=== PATIENT | male | born 1980 | race Caucasian/White ===

== ENCOUNTER 2017-03-18 18:01 | Emergency (ER) | payer SELFPAY ==
--- NOTE | 2017-03-18 19:19 | DIAGNOSTIC IMAGING REPORT ---
PROCEDURE: XR FOOT 3 VIEWS - RIGHT INDICATION: TRAUMA/INJURY TECHNIQUE: Three views. COMPARISON: None. FINDINGS: Traumatic amputation of the proximal third and fourth phalanges midshafts. No additional osseous abnormalities. Normal joint spaces and soft tissues. IMPRESSION: 1. Traumatic amputation of the right third and fourth proximal phalanges.
--- NOTE | 2017-03-18 21:04 | ED CLINICAL REPORT ---
Clinical Report - [facility] [address] [place] [address] 03/18/2017 18:02 Patient: JAVON BLEDSOE Time Seen: 1809. Arrived- By private vehicle. Historian- patient. HISTORY OF PRESENT ILLNESS Chief Complaint: Injury to the right 2nd toe and right 3rd toe. The injury happened today just prior to 1800. Occurred at home. Patient is experiencing moderate pain. Patient denies injury to the head or neck. No other injury. REVIEW OF SYSTEMS The patient sustained a laceration. He complains of pain on weight bearing. No suspected foreign body. All systems otherwise negative, except as recorded above. PAST HISTORY See nurses notes. Tetanus immunization status is unknown. Problems: no known problems. Additional Surgeries: no known surgeries. Medications: None. Allergies: No Known Drug Allergy. SOCIAL HISTORY Former smoker. Occasional alcohol use. History of occasional drug use: marijuana. No recent travel. Is a local resident. ADDITIONAL NOTES The nursing notes have been reviewed. PHYSICAL EXAM Vital Signs: 03/18/2017 18:09 BP: 113/42. HR: 74. RR: 13. O2 saturation: 100%. Pain level now: 10/10. Blood pressure normal. Oxygen saturation normal. Appearance: Alert. Oriented X3. Patient in moderate distress. (non-toxic). Head: Head atraumatic. Eyes: Pupils equal, round and reactive to light. Eyes normal inspection. ENT: Ears normal. Nose normal. Pharynx normal. Neck: Normal inspection. Neck supple. C-spine non-tender. CVS: Normal heart rate and rhythm. Heart sounds normal. Pulses normal. Respiratory: No respiratory distress. Breath sounds normal. Chest nontender. Abdomen: No visible injury. Soft and nontender. Bowel sounds normal. Back: Normal inspection. No tenderness. ROM normal. No vertebral point tenderness. Skin: Skin intact. Skin warm and dry. Extremities: (complete amputation of the third and fourth digit on the right foot. Possible tendon and bone exposure. No pulsatile bleeding. Bleeding is controlled with pressure. Areas appropriate only tender. No signs of foreign body or gross contamination. No other signs of injury noted.). Gait: Gait not tested due to pain. He was unable to bear weight. Neuro: Oriented X 3. No motor deficit. No sensory deficit. LABS, X-RAYS, AND EKG Rt Foot X-ray: (PROCEDURE: XR FOOT 3 VIEWS - RIGHT INDICATION: TRAUMA/INJURY TECHNIQUE: Three views. COMPARISON: None. FINDINGS: Traumatic amputation of the proximal third and fourth phalanges midshafts. No additional osseous abnormalities. Normal joint spaces and soft tissues. IMPRESSION: 1. Traumatic amputation of the right third and fourth proximal phalanges.). The X-rays were independently viewed by me and interpreted by the radiologist. The X-rays were discussed with the radiologist (via pacs and phone). Laboratory Tests: CBC w Diff: (LATESHA: 03/18/2017 18:10) ( MsgRcvd 03/18/2017 18:26) Final results Test Result Flag Units (Reference) WHITE BLOOD COUNT 10.9 K/uL (4.5-11.5) RED BLOOD COUNT 5.15 M/uL (4.50-5.90) HEMOGLOBIN 15.4 gm/dL (13.5-17.5) HEMATOCRIT 45.4 % (41.0-53.0) MEAN CELL VOLUME 88 fL (80-100) MEAN CORPUSCULAR HGB 30 pg (26-34) MEAN CORPUSCULAR HGB CONC 34 g/dL (31-37) RED CELL DISTRIBUTION WIDTH 12.5 % (11.6-14.8) PLATELET COUNT 197 K/uL (150-400) NEUTROPHIL % 52.5 % (50-75) LYMPH % 35.8 % (25-40) MONO % 9.0 % (3-14) EOSINOPHIL % 2.5 % (0-4) BASOPHIL % 0.2 % (0-2) PT with INR: (LATESHA: 03/18/2017 18:10) ( MsgRcvd 03/18/2017 18:40) Final results Test Result Flag Units (Reference) INR 1.0 (0.8-1.2) Low Intensity Therapy: INR 1.5-2.0 PT range 18.5-23.1Mod.Intensity Therapy: INR 2.0-3.0 PT range 23.1-31.5High Intensity Therapy: INR 2.5-3.5 PT range 27.4-35.5High Intensity Therapy 2: INR 3.0-4.0 PT range 31.5-39.3 APTT 22 L SECONDS (24-34) CMP: (LATESHA: 03/18/2017 18:10) ( MsgRcvd 03/18/2017 18:43) Final results Test Result Flag Units (Reference) GLUCOSE 117 H mg/dL (70-110) BUN 17 mg/dL (7-18) CREATININE 1.3 mg/dL (0.6-1.3) Estimated GFR >60 mL/min Estimated GFR- >60 mL/min Note: Persistent reduction over 3 months in eGFR<60 mL/min/1.73 m2 defines CKD. Patients with eGFR values>=60 mL/min/1.73 m2 may also have CKD if evidence ofpersistent proteinuria. Additional information may be foundat [email or web address].org. SODIUM 140 mmol/L (136-145) POTASSIUM 3.2 L mmol/L (3.5-5.1) CHLORIDE 100 mmol/L (98-107) CARBON DIOXIDE 24 mmol/L (21-32) CALCIUM 9.2 mg/dL (8.5-10.1) TOTAL PROTEIN 7.9 g/dL (6.4-8.2) ALBUMIN 4.1 g/dL (3.3-5.0) BILIRUBIN, TOTAL 0.9 mg/dL (0.0-1.0) ALKALINE PHOSPHATASE 86 U/L (46-116) AST (SGOT) 25 U/L (15-37) ALT (SGPT) 65 U/L (12-78) . PROGRESS AND PROCEDURES Course of Care: the patient is a pleasant 36-year-old male presenting for evaluation atraumatic injury to the right foot. Patient noted with complete abrogation of the third and fourth digit. Small laceration noted to extend from the area of injury to the proximal second digit however no tendon involvement noted on examination to the second digit. The rest of the digits are neurovascularly intact. Patient has toes brought in. Because of the patient's injury, potential for re-anastomoses a possibility. Digits were placed in sterile saline gauze and placed in a container that was then placed on ice. Pain medication as provided here in the emergency department. We will consult with ourpodiatrist/orthopedic surgeon for further recommendations and possible reattachment. Didn't mention the patient the low likelihood of reattachment for toes. However would still consult with our specialist in regards to this possibility. Was able to speak to the on-call orthopedic surgeon who is also covering for podiatry. Stated that reattachment of toes is usually not indicated unless it is the great toe. Didn't mention that a microvascular surgeon would be needed which is usually a subspecialty of hand surgery. Stated that [facility] or [place] would be the place to try and contact one of these specialist. [place] did not have a on-call center team leader for this type of injury. [facility] was consult at. We're able to speak to the doctor at [facility] in regards to the patient's injury. Because of the patient's location of injury and mechanism, did not feel that reattachment would be feasible at this point. Risks outweigh the benefits. Relayed this information to the family. Answered all questions appropriately. Family patient was understanding of the decision not to reattach the patient's digits. Because of the patient's wound, was able to evaluate with local as well assystemic pain medication. Was concerned about the large tissue deficit noted on patient's examination. Anesthetic, do not feel comfortable with closing the patient's wound. Large tissue defect would make it difficult for the wound to be closed. Spoke to the on-call orthopedic surgeon recommended patient have the wound irrigated out as best as possible, prophylactic antibiotics, and follow up in clinic as soon as possible. Pain medication as been provided. The patient is approaching a 3 day weekend which would make it difficult for the patient to get refills on his pain medication. A larger than usual dose of pain medication as provided. In addition, because of the injury, breakthrough pain medication as been provided and since the patient for difficulty withpain control at home. Tetanus is updated. First dose of antibiotic provided here in the emergency department. Prescriptions were provided to the patient in regards to his injury. Discussed with the patient and family wound risk precautions. All questions have been answered. The wound was dressed with a Xeroform gauze and bandages. Patient tolerated irrigation well. No other signs of injury noted. Discussed with patient and family is workup. Emergency Department including diagnosis, home care, follow-up, and returc All questions have been answered. The patient expressed understanding of these instructions and was agreeable to them. Prior to patient's discharge from the emergency department he is noted to be sitting in bed in no acute distress. Pain has significantly improved. No other abnormalities noted on patient's workup. Patient is to be nontoxic and in no acute distress. call patient today to check up on him. Voice message left on patient's phone number provided here in the emergency department. Critical care performed (50 minutes). Time is exclusive of separately billable procedures. Time includes: direct patient care, patient reassessment, coordination of patient care, review of patient's medical records, medical consultation, family consultation regarding treatment decisions and documentation of patient care. Consult obtained from orthopedics. Microvascular surgery at [facility]. Disposition: Discharged. Condition: good. CLINICAL IMPRESSION 03/18/2017 20:52 BP: 148/78. HR: 67. RR: 20. O2 saturation: 96%. Pain level now: 0/10. Blood pressure normal. Oxygen saturation normal. Deep laceration. 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 No foreign body present. need for tetanus booster. INSTRUCTIONS Off work for 7 days. Warnings: INFECTION: Watch for signs of infection (increasing heat and redness, pus-like drainage, swelling, or increased pain). Return or see your doctor if these signs occur. SEDATIVE MEDICATION: You were given sedative medication during your visit. Do not drive or operate dangerous machinery. CONTROLLED SUBSTANCE WARNINGS. GENERAL WARNINGS: Return or contact your physician immediately if your condition worsens or changes unexpectedly, if not improving as expected, or if other problems arise. Specifically return if pain, vomiting, bleeding, breathing difficulty or fever. Your Current Medications: CONTINUE TAKING THE FOLLOWING MEDICATIONS: None*. Prescription Medications: Cephalexin 500 mg: take 1 capsule orally every 8 hours for 10 days. No refill. (disp 30 caps) Percocet 5 mg/325 mg: take 1-2 tablets orally every 6 hours as needed for pain. Dispense thirty (30). No refill. Substitution is permissible. Morphine sulfate 15 mg IR. Take one tab PO. As needed for break through pain every 6 hours. Disp 15 tabs. No refills. Substitution allowed. Follow-up: Return to the emergency department as needed. Follow up with your doctor in five days. Reason for referral: recheck today's concerns. Summary of care provided to patient and family via paper. Screening today revealed the patient's blood pressure to be in the normal range. The patient should follow up with a primary care provider for blood pressure management. Understanding of the discharge instructions verbalized by patient and family. Follow-up with: [facility], , [address], , [place], [address] Follow up. Reason for referral: Call first thing tomorrow morning for an appointment. Summary of care provided to patient via paper. (Electronically signed by Marcio Obregon Dr. 03/22/2017 7:34)
--- NOTE | 2017-03-18 21:04 | ED ORDER SUMMARY ---
..... Patient: JAVON BLEDSOE OrderSheet [facility] VisitID: [id number] [place] [address] 36y, M Registration Date/Time: 03/18/2017 ORDER SHEET Weight: 92.9 kg Allergies: No Known Drug Allergy GENERAL ORDERS: Foot 3V Right Urgent (18:10 03/18/2017 Pk Saleem) (Ack 18:11 Mike) (18:19 Ingris R.N.) Peanut Vendor (Continuous) (trauma) (18:14 03/18/2017 Pk Saleem) (18:19 Ingris RHarshN.) CBC w Diff Urgent (18:14 03/18/2017 Pk Saleem) (Ack 18:17 Mike) (18:19 Ingris R.N.) CMP Urgent (18:14 03/18/2017 Pk Saleem) (Ack 18:17 Mike) (18:19 Ingris R.N.) Pulse oximeter (18:14 03/18/2017 Pk Saleem) (18:19 Ingris R.N.) PT with INR Urgent (18:15 03/18/2017 Pk Saleem) (Ack 18:17 Mike) (18:19 Ingris R.N.) PTT Urgent (18:15 03/18/2017 Pk Saleem) (Ack 18:17 Mike) (18:19 Ingris R.N.) Orthopedic Shoe (right foot) (20:53 03/18/2017 Pk Saleem) (20:55 HSoule) Crutches (20:53 03/18/2017 Pk Saleem) (20:55 HSoule) MEDICATION ORDERS: Lidocaine Injection 1% (place at bedside, with syringes & needles) (19:44 03/18/2017 Pk Saleem) (Ack 19:49 RMarsden R.N.) (Ack 19:49 HSoule) (19:53 RMarsden R.N.) Ohtnnsi-Gsleki-Pylap Pertussis IM 0.5 mL (NOW, per protocol) (21:02 03/18/2017 Pk Saleem) (Ack 21:04 HSoule) (21:09 HSoule) IV FLUIDS: Morphine IV 4 mg (HIGH ALERT MEDICATION, NOW) (18:14 03/18/2017 Pk Saleem) (18:19 Ingris R.N.) IV NS : initial bolus 1000 mL (1000 mL/hr), then none - for X1 (NOW) (18:14 03/18/2017 Pk Saleem) (18:18 Ingris R.N.) Morphine IV 2 mg (HIGH ALERT MEDICATION, NOW) (19:09 03/18/2017 Ingris R.N. verbal order read back to Pk Saleem) (19:10 Ingris R.N.) Morphine IV 4 mg (HIGH ALERT MEDICATION, NOW) (19:43 03/18/2017 Pk Saleem) (Ack 19:47 RMarsden R.N.) (19:50 RMarsden R.N.) Ceftriaxone IV 1 gm/50mL (NOW) (20:52 03/18/2017 Pk Saleem) (Ack 20:56 HSoule) (21:15 HSoule) Zofran IV 4 mg (NOW) (20:59 03/18/2017 Pk Saleem) (21:03 HSoule) Morphine IV 4 mg (HIGH ALERT MEDICATION, NOW) (20:59 03/18/2017 Pk Saleem) (21:03 HSoule) Dilaudid IV 1 mg (HIGH ALERT MEDICATION, NOW) (20:59 03/18/2017 Pk Saleem) (21:04 HSoule) ORDER SHEET NOTES: [Electronically signed by Marta Mckeon (:03/19/2017)] [Electronically signed by Marcio Obregon Dr. (07:34 03/22/2017)] [Electronically locked/signed by Marta Mckeon (03/19/2017)]
--- NOTE | 2017-03-18 21:04 | ED ORDER SUMMARY ---
..... Patient: JAVON BLEDSOE OrderSheet [facility] VisitID: [id number] [place] [address] 36y, M Registration Date/Time: 03/18/2017 ORDER SHEET Weight: 92.9 kg Allergies: No Known Drug Allergy GENERAL ORDERS: Foot 3V Right Urgent (18:10 03/18/2017 Pk Saleem) (Ack 18:11 Mike) (18:19 Ingris R.N.) [employer] As[employer]er (Continuous) (trauma) (18:14 03/18/2017 Pk Saleem) (18:19 Ingris RHarshN.) CBC w Diff Urgent (18:14 03/18/2017 Pk Saleem) (Ack 18:17 Mike) (18:19 Ingris R.N.) CMP Urgent (18:14 03/18/2017 Pk Saleem) (Ack 18:17 Mike) (18:19 Ingris R.N.) Pulse oximeter (18:14 03/18/2017 Pk Saleem) (18:19 Ingris R.N.) PT with INR Urgent (18:15 03/18/2017 Pk Saleem) (Ack 18:17 Mike) (18:19 Ingris R.N.) PTT Urgent (18:15 03/18/2017 Pk Saleem) (Ack 18:17 Mike) (18:19 Ingris R.N.) Orthopedic Shoe (right foot) (20:53 03/18/2017 Pk Saleem) (20:55 HSoule) Crutches (20:53 03/18/2017 Pk Saleem) (20:55 HSoule) MEDICATION ORDERS: Lidocaine Injection 1% (place at bedside, with syringes & needles) (19:44 03/18/2017 Pk Saleem) (Ack 19:49 RMarsden R.N.) (Ack 19:49 HSoule) (19:53 RMarsden R.N.) Zltvvmx-Ojsjgx-Lspns Pertussis IM 0.5 mL (NOW, per protocol) (21:02 03/18/2017 Pk Saleem) (Ack 21:04 HSoule) (21:09 HSoule) IV FLUIDS: Morphine IV 4 mg (HIGH ALERT MEDICATION, NOW) (18:14 03/18/2017 Pk Saleem) (18:19 Ingris R.N.) IV NS : initial bolus 1000 mL (1000 mL/hr), then none - for X1 (NOW) (18:14 03/18/2017 Pk Saleem) (18:18 Ingris R.N.) Morphine IV 2 mg (HIGH ALERT MEDICATION, NOW) (19:09 03/18/2017 Ingris R.N. verbal order read back to Pk Saleem) (19:10 Ingris R.N.) Morphine IV 4 mg (HIGH ALERT MEDICATION, NOW) (19:43 03/18/2017 Pk Saleem) (Ack 19:47 RMarsden R.N.) (19:50 RMarsden R.N.) Ceftriaxone IV 1 gm/50mL (NOW) (20:52 03/18/2017 Pk Saleem) (Ack 20:56 HSoule) (21:15 HSoule) Zofran IV 4 mg (NOW) (20:59 03/18/2017 Pk Saleem) (21:03 HSoule) Morphine IV 4 mg (HIGH ALERT MEDICATION, NOW) (20:59 03/18/2017 Pk Saleem) (21:03 HSoule) Dilaudid IV 1 mg (HIGH ALERT MEDICATION, NOW) (20:59 03/18/2017 Pk Saleem) (21:04 HSoule) ORDER SHEET NOTES: [Electronically signed by Marta Mckeon (:03/19/2017)] [Electronically signed by Marcio Obregon Dr. (07:34 03/22/2017)] [Electronically locked/signed by Marta Mckeon (03/19/2017)]
--- NOTE | 2017-03-18 21:04 | ED NURSING NOTES ---
Clinical Report - Nurses [place] [address] [place] [address] 03/18/2017 18:02 [facility]: [id number] TRIAGE Triage time 18:09. Acuity: LEVEL 2. Chief Complaint: INJURY TO RIGHT FOOT. Alert. ART COMA SCORE: Art Coma Scale: 15- eyes open spontaneously (4); best verbal response- oriented x 4 (5); best motor response- obeys commands (6). --18:15 Juany Mauro R.N. 18:09 03/18/17. BP: 113/42. HR: 74. RR: 13. O2 saturation: 100% on room air. Pain level now: 08/03. --18:15 Juany Mauro R.N. 18:26 03/18/17. --18:27 Juany Mauro R.N. 18:33 03/18/17. Temp: 97.8 F (temporal). --18:34 Juany Mauro R.N. Weight: 92.9 kg. Height/Length: 70 inches. BMI: 29.4. --18:13 Juany Mauro R.N. Medications None. --18:11 Juany Mauro R.N. Allergies No Known Drug Allergy. --18:11 Juany Mauro R.N. History Arrived by private vehicle. Historian: patient. Accompanied by friend. Primary physician (none). Mechanism of injury: (amputation of 2 toes, trailer fell on it). ( toes brought in with pt). SOCIAL HX: Former smoker. Occasional alcohol use. History of drug use: marijuana. FUNCTIONAL ASSESSMENT: Functional assessment: no impairments noted. LEARNING NEEDS ASSESSMENT: The learning needs assessment revealed no barriers. FALL RISK ASSESSMENT: Fall risk assessment completed. Risk factors identified include severe pain. --18:15 Juany Mauro R.N. PAST MEDICAL HX: Tetanus status: up-to-date. --18:27 Nj, Juany, R.N. PROBLEMS: no known problems. ADDITIONAL SURGERIES: no known surgeries. Assessment GENERAL / NEURO / PSYCH: The patient is awake and alert, appears in pain and is oriented and cooperative. He has good eye contact. RESPIRATORY: Respirations not labored. SKIN: Skin is pale. Skin is warm and dry. --18:15 Juany Mauro R.N. Interventions ID band on patient. To treatment room. --18:15 Juany Mauro R.N. PHYSICAL ASSESSMENT 18:16 03/18/17. To room via wheelchair. GENERAL / NEURO / PSYCH: Oriented X 4. Alert. Appears in pain. EXTREMITIES: ( 3-4th toes amputated bleeding controlled with direct pressure). SKIN: Skin is pale. Skin is warm and dry. --18:16 Juany Mauro R.N. NURSING PROGRESS NOTES 18:12 03/18/2017 Site #1 started via IV in the right antecubital space with an 18g angiocath, with aseptic technique and good blood return; one attempt. Saline lock flushed with 10 mL saline. --18:17 Juany Mauro R.N. 18:12 03/18/2017 Site #2 started via IV in the left antecubital space with an 20g angiocath, with aseptic technique and good blood return; one attempt. Blood drawn: rainbow set. Sent to the lab. --18:17 Juany Mauro R.N. 18:17 03/18/17. Call light placed in reach. Side rails up x 2. Bed placed in lowest position. Brakes of bed on. --18:17 Juany Mauro R.N. 18:18 03/18/2017 Started bag #1 1000 mL IV Fluids IV NS (Saline); at 1000 mL/hr over 1 hour(s) via site #2 via IV pump. --18:18 Juany Mauro R.N. 18:19 03/18/2017 Morphine IVP 4 mg given over 2 minute(s) via site #2. Allergies verified, confirmed 5 rights and sedative warning given to the patient. IV patency established. IV site checked: no pain, redness, or swelling. IV flushed thoroughly pre- and post-medication administration. IVP given by RN. --18:19 Juany Mauro R.N. 18:15 toes placed in saline in cup, cup placed in ice. --18:20 Juany Mauro R.N. 18:22 03/18/17. BP: 157/96. HR: 74. RR: 17. O2 saturation: 100% on non-rebreather at 15 liters/minute. Pain level now: 08/03. --18:26 Juany Mauro R.N. 18:26 03/18/17. The patient is calm. Overall patient status is the same- he states feels the same. GENERAL / NEURO / PSYCH: Alert. Oriented X 4. RESPIRATORY: No respiratory distress. SKIN: Skin is warm and dry. --18:26 Juany Mauro R.N. 18:32 03/18/17. The patient is calm. --18:32 Juany Mauro R.N. 18:31 03/18/17. BP: 165/98. HR: 76. RR: 17. O2 saturation: 100%. Pain level now: 08/03. --18:32 Juany Mauro R.N. 19:07 03/18/17. BP: 161/92. HR: 68. RR: 18. O2 saturation: 100% on room air. Pain level now: 04/03. --19:08 Juany Mauro R.N. 19:03/18/17. Reassessment after medication administered. He is calm and resting quietly. Overall patient status is the same- he states feels better. GENERAL / NEURO / PSYCH: Alert. Oriented X 4. RESPIRATORY: No respiratory distress. SKIN: Skin is warm and dry. --19:08 Juany Mauro R.N. 19:10 03/18/2017 Morphine IVP 2 mg given over 2 minute(s) via site #2. Allergies verified, confirmed 5 rights and sedative warning given to the patient and patient's family. IV patency established. IV site checked: no pain, redness, or swelling. IV flushed thoroughly pre- and post-medication administration. IVP given by RN. --19:10 Juany Mauro R.N. 19:12 03/18/17. BP: 161/92. HR: 63. RR: 20. O2 saturation: 100% on room air. Pain level now: 610. --19:13 Marta Mckeon 19:22 03/18/2017 IV Fluids IV NS Discontinued: bag #1 completed. Total amount infused: 1000 mL. IV patency established. IV site checked: no pain, redness, or swelling. IV flushed thoroughly. --19:22 Marta Mckeon 19:50 03/18/2017 Morphine IVP 4 mg given over 2 minute(s) via site #2. Allergies verified, confirmed 5 rights and sedative warning given to the patient. IV patency established. IV site checked: no pain, redness, or swelling. IV flushed thoroughly pre- and post-medication administration. IVP given by RN. --19:50 Fany Mckoy R.N. 19:53 03/18/2017 Lidocaine Injection Injectable 1 % given. Allergies verified and confirmed 5 rights. (Given by ED Phys). --19:53 Fany Mckoy R.N. 20:01 03/18/17. BP: 152/91. HR: 78. RR: 20. O2 saturation: 100% on nasal cannula at 2 liters/minute. Pain level now: 810. --20:01 Marta Mckeon ( Provider at bedside to assess repair needs of patient injury. Family at bedside.). --20:01 Marta Mckeon GENERAL / NEURO / PSYCH: Alert. Oriented X 4. RESPIRATORY: No respiratory distress. SKIN: Skin is warm and dry. ( Provider at bedside irrigating patient wounds). --20:39 Marta Mckeon 20:52 03/18/17. BP: 148/78. HR: 67. RR: 20. O2 saturation: 96% on nasal cannula at 2 liters/minute. Pain level now: 0/10. --20:55 Marta Mckeon 19:55 03/18/2017 Zofran (Ondansetron HCl) IVP 4 mg given over 2 minute(s) via site #2. Allergies verified and confirmed 5 rights. IV patency established. IV site checked: no pain, redness, or swelling. IV flushed thoroughly pre- and post-medication administration. IVP given by RN. --21:03 Marta Mckeon 20:03 03/18/2017 Morphine IVP 4 mg given over 1 minute(s) via site #2. Allergies verified, confirmed 5 rights and sedative warning given to the patient and patient's family. IV patency established. IV site checked: no pain, redness, or swelling. IV flushed thoroughly pre- and post-medication administration. IVP given by RN. --21:03 Marta Mckeon 20:20 03/18/2017 Dilaudid (HYDROmorphone HCl PF) IVP 1 mg given over 1 minute(s) via site #2. Allergies verified, confirmed 5 rights and sedative warning given to the patient and patient's family. IV patency established. IV site checked: no pain, redness, or swelling. IV flushed thoroughly pre- and post-medication administration. IVP given by RN. --21:04 Marta Mckeon 20:50 03/18/17. Wound cleansed. Applied clean pressure dressing consisting of 4x4 gauze. Secured with tape, tube gauze, kerlix and eloy (Bulky dressing applied by provider.). Patient fit with new crutches. --01:20 Marta Mckeon 21:00 03/18/2017 Started 1 gm of Ceftriaxone IVPB in bag #1 50 mL; at 150 mL/hr over 20 minute(s) via site #1 via IV pump. Allergies verified and confirmed 5 rights. IV patency established. IV site checked: no pain, redness, or swelling. IV flushed thoroughly pre- and post-medication administration. --21:15 Marta Mckeon 21:09 03/18/2017 [id number] PERTUSSIS IM 0.5 mL given. (Lot#: [id number], expiration date: 03/04/2019, Check Examiner: sanofi pasteur). Given in the right deltoid. Allergies verified and confirmed 5 rights. Vaccine information statement provided to the patient. --21:09 Marta Mckeon 21:20 03/18/2017 Ceftriaxone IVPB Discontinued: bag #1 completed upon discharge. Total amount infused: 50 mL. IV patency established. IV site checked: no pain, redness, or swelling. IV flushed thoroughly. --01:25 Marta Mckeon. DISPOSITION / DISCHARGE 21:30 03/18/17. BP: 144/98. HR: 60. RR: 20. O2 saturation: 97% on room air. Temp: 98 F (oral). Pain level now: 12/04. --:24 Marta Mckeon 21:22 03/18/2017 Site #2 removed upon discharge. Catheter intact. Bandaid applied. --:24 Marta Mckeon 21:24 03/18/2017 Site #1 removed upon discharge. Catheter intact. Bandaid applied. --:24 Marta Mckeon 21:30 03/18/17. Condition at departure: stable. The goals identified in the patient's plan of care were met. No learning barriers present. Discharge instructions provided and reviewed with the patient, spouse and family. Reviewed warnings (Do not drive while on sedative medications.). Reviewed medication(s) side effects, precautions, dosing and course information. Prescription(s) given to the patient. Reviewed wound care and crutch walking instructions. Work note given (No work for seven days.). Patient, spouse and family verbalized understanding. Written instructions provided in Romanian. ( Follow up with Orthopedic for next available appointment, contact information provided. Follow up with your PCP as well. Discussed warning signs of infection and when to return to ER. Discussed appropriate crutch walking and wound care. Increase fluids, rest, elevate extremity. Patient and spouse verbalized understanding. All questions were addressed and family had no additional questions or concerns at this time.). The patient was discharged by the physician. He was discharged home and accompanied by family. He left the Emergency Department in a wheelchair and via private vehicle. Family member driving. --:24 Marta Mckeon. Locked/Released at 03/19/2017 1:25 by Marta Mckeon,
--- NOTE | 2017-03-22 07:34 | ED MAR SUMMARY ---
..... Medication Administration Record [facility] [address] [place] [address] Patient: JAVON BLEDSOE Visit ID: [id number] 36y, M Weight: 92.9 kg Height/Length: 70 in BMI: 29.4 ALLERGIES: No Known Drug Allergy Start 18:18 03/18/2017 Juany Mauro R.N., Stop 19:22 03/18/2017 Marta Mckeon, Medication Administered: IV NS (SALINE), Dose: IV Fluids over 1 hour(s), Rate: 1000 mL/hr, Dispensed: 1000 mL bag, Site: #2 left AC. Medication Ordered: IV NS : initial bolus 1000 mL (1000 mL/hr), then none - for X1 (NOW). Given 18:19 03/18/2017 Juany Mauro R.N. Medication Administered: MORPHINE [IVP], Dose: 4 mg IVP over 2 minute(s), Site: #2 left AC. Medication Ordered: Morphine IV 4 mg (HIGH ALERT MEDICATION, NOW). Given 19:10 03/18/2017 Juany Mauro R.N. Medication Administered: MORPHINE [IVP], Dose: 2 mg IVP over 2 minute(s), Site: #2 left AC. Medication Ordered: Morphine IV 2 mg (HIGH ALERT MEDICATION, NOW). Given 19:50 03/18/2017 Fany Mckoy R.N. Medication Administered: MORPHINE [IVP], Dose: 4 mg IVP over 2 minute(s), Site: #2 left AC. Medication Ordered: Morphine IV 4 mg (HIGH ALERT MEDICATION, NOW). Given 19:53 03/18/2017 Fany Mckoy RHarshNHarsh Medication Administered: LIDOCAINE [INJECTION], Dose: 1 % Injectable Injection. Medication Ordered: Lidocaine Injection 1% (place at bedside, with syringes & needles). Given 19:55 03/18/2017 Marta Mckeon, Medication Administered: ZOFRAN [IVP] (ONDANSETRON HCL), Dose: 4 mg IVP over 2 minute(s), Site: #2 left AC. Medication Ordered: Zofran IV 4 mg (NOW). Given 20:03 03/18/2017 Marta Mckeon, Medication Administered: MORPHINE [IVP], Dose: 4 mg IVP over 1 minute(s), Site: #2 left AC. Medication Ordered: Morphine IV 4 mg (HIGH ALERT MEDICATION, NOW). Given 20:20 03/18/2017 Marat Mckeon, Medication Administered: DILAUDID [IVP] (HYDROMORPHONE HCL PF), Dose: 1 mg IVP over 1 minute(s), Site: #2 left AC. Medication Ordered: Dilaudid IV 1 mg (HIGH ALERT MEDICATION, NOW). Start 21:00 03/18/2017 Marta Mckeon,, Stop 21:20 03/18/2017 Marta Mckeon, Medication Administered: CEFTRIAXONE [IVPB], Dose: 1 gm IVPB over 20 minute(s), Rate: 150 mL/hr, Dispensed: 50 mL bag, Site: #1 right AC. Medication Ordered: Ceftriaxone IV 1 gm/50mL (NOW). Given 21:09 03/18/2017 Marta Mckeon, Medication Administered: [id number] PERTUSSIS [IM], Dose: 0.5 mL IM. Medication Ordered: [id number]-Zmodx Pertussis IM 0.5 mL (NOW, per protocol).
--- NOTE | 2017-03-22 07:34 | ED MAR SUMMARY ---
..... Medication Administration Record [facility] [address] [place] [address] Patient: JAVON BLEDSOE Visit ID: [id number] 36y, M Weight: 92.9 kg Height/Length: 70 in BMI: 29.4 ALLERGIES: No Known Drug Allergy Start 18:18 03/18/2017 Juany Mauro R.N., Stop 19:22 03/18/2017 Marta Mckeon, Medication Administered: IV NS (SALINE), Dose: IV Fluids over 1 hour(s), Rate: 1000 mL/hr, Dispensed: 1000 mL bag, Site: #2 left AC. Medication Ordered: IV NS : initial bolus 1000 mL (1000 mL/hr), then none - for X1 (NOW). Given 18:19 03/18/2017 Juany Mauro R.N. Medication Administered: MORPHINE [IVP], Dose: 4 mg IVP over 2 minute(s), Site: #2 left AC. Medication Ordered: Morphine IV 4 mg (HIGH ALERT MEDICATION, NOW). Given 19:10 03/18/2017 Juany Mauro R.N. Medication Administered: MORPHINE [IVP], Dose: 2 mg IVP over 2 minute(s), Site: #2 left AC. Medication Ordered: Morphine IV 2 mg (HIGH ALERT MEDICATION, NOW). Given 19:50 03/18/2017 Fany Mckoy R.N. Medication Administered: MORPHINE [IVP], Dose: 4 mg IVP over 2 minute(s), Site: #2 left AC. Medication Ordered: Morphine IV 4 mg (HIGH ALERT MEDICATION, NOW). Given 19:53 03/18/2017 Fany Mckoy RHarshNHarsh Medication Administered: LIDOCAINE [INJECTION], Dose: 1 % Injectable Injection. Medication Ordered: Lidocaine Injection 1% (place at bedside, with syringes & needles). Given 19:55 03/18/2017 Marta Mckeon, Medication Administered: ZOFRAN [IVP] (ONDANSETRON HCL), Dose: 4 mg IVP over 2 minute(s), Site: #2 left AC. Medication Ordered: Zofran IV 4 mg (NOW). Given 20:03 03/18/2017 Marta Mckeon, Medication Administered: MORPHINE [IVP], Dose: 4 mg IVP over 1 minute(s), Site: #2 left AC. Medication Ordered: Morphine IV 4 mg (HIGH ALERT MEDICATION, NOW). Given 20:20 03/18/2017 Marta Mckeon, Medication Administered: DILAUDID [IVP] (HYDROMORPHONE HCL PF), Dose: 1 mg IVP over 1 minute(s), Site: #2 left AC. Medication Ordered: Dilaudid IV 1 mg (HIGH ALERT MEDICATION, NOW). Start 21:00 03/18/2017 Marta Mckeon,, Stop 21:20 03/18/2017 Marta Mckeon, Medication Administered: CEFTRIAXONE [IVPB], Dose: 1 gm IVPB over 20 minute(s), Rate: 150 mL/hr, Dispensed: 50 mL bag, Site: #1 right AC. Medication Ordered: Ceftriaxone IV 1 gm/50mL (NOW). Given 21:09 03/18/2017 Marta Mckeon, Medication Administered: [id number] PERTUSSIS [IM], Dose: 0.5 mL IM. Medication Ordered: [id number]-Rhkgwf-Louwz Pertussis IM 0.5 mL (NOW, per protocol).
--- NOTE | 2017-03-22 07:34 | ED DISCHARGE INSTRUCTIONS ---
Patient: JAVON BLEDSOE General Instructions [facility] VisitID: [id number] [address], [place] [address] 36y, M Registration Date/Time: 03/18/2017 03/18/2017 20:52 BP: 148/78. HR: 67. RR: 20. O2 saturation: 96%. Pain level now: 0/10. Blood pressure normal. Oxygen saturation normal. Deep laceration. 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 No foreign body present. need for tetanus booster. INSTRUCTIONS Off work for 7 days. Warnings: INFECTION: Watch for signs of infection (increasing heat and redness, pus-like drainage, swelling, or increased pain). Return or see your doctor if these signs occur. SEDATIVE MEDICATION: You were given sedative medication during your visit. Do not drive or operate dangerous machinery. CONTROLLED SUBSTANCE WARNINGS. GENERAL WARNINGS: Return or contact your physician immediately if your condition worsens or changes unexpectedly, if not improving as expected, or if other problems arise. Specifically return if pain, vomiting, bleeding, breathing difficulty or fever. Your Current Medications: CONTINUE TAKING THE FOLLOWING MEDICATIONS: None*. Prescription Medications: Cephalexin 500 mg: take 1 capsule orally every 8 hours for 10 days. No refill. (disp 30 caps) Percocet 5 mg/325 mg: take 1-2 tablets orally every 6 hours as needed for pain. Dispense thirty (30). No refill. Substitution is permissible. Morphine sulfate 15 mg IR. Take one tab PO. As needed for break through pain every 6 hours. Disp 15 tabs. No refills. Substitution allowed. Follow-up: Return to the emergency department as needed. Follow up with your doctor in five days. Reason for referral: recheck today's concerns. Summary of care provided to patient and family via paper. Screening today revealed the patient's blood pressure to be in the normal range. The patient should follow up with a primary care provider for blood pressure management. Understanding of the discharge instructions verbalized by patient and family. Follow-up with: [facility], , [address], [place] [id number] Follow up. Reason for referral: Call first thing tomorrow morning for an appointment. Summary of care provided to patient via paper. ADDITIONAL INFORMATION Laceration (All Closures) Alaceration is a cut through the skin. This will usually require stitches (sutures) or cortney if it is deep. Minor cuts may be treated with a surgical tape closure orskin glue. Home care The following guidelines will help you care for your laceration at home: Extremity, face, or trunk wounds Keep the wound clean and dry. If a bandage was applied and it becomes wet or dirty, replace it. Otherwise, leave it in place for the first 24 hours. If stitches or cortney were used, clean the wound daily. After removing the bandage, wash the area with soap and water. Use a wet cotton swab to loosen and remove any blood or crust that forms. The doctor may prescribe an antibiotic cream or ointment to prevent infection. Do not stop taking this medication until you have finished the prescribed course or the doctor tells you to stop. The doctor may also prescribe medications for pain. Follow the doctors instructions for taking these medications. You may remove the bandage to shower as usual after the first 24 hours, but do not soak the area in water (no swimming) until the stitches or cortney are removed. If surgical tape was used, keep the area clean and dry. If it becomes wet, blot it dry with a towel. If skin glue was used, do not scratch, rub, or pick at the adhesive film. Do not place tape directly over the film. Do not apply liquid, ointment, or creams to the wound while the film is in place. Do not clean the wound with peroxide and do not apply ointments. Avoid activities that cause heavy sweating until the film has fallen off. Protect the wound from prolonged exposure to sunlight or tanning lamps. You may shower as usual but do not soak the wound in water (no baths or swimming). The film will fall off by itself in 510 days. Scalp wounds During the first two days, you may carefully rinse your hair in the shower to remove blood, glass or dirt particles. After two days, you may shower and shampoo your hair normally. Do not soak your scalp in the tub or go swimming until the stitches or cortney have been removed. Talk with your doctor before applying any antibiotic ointment to the wound. Mouth wounds Eat soft foods to reduce pain. If the cut is inside of your mouth, clean by rinsing after each meal and at bedtime with a mixture of equal parts water and hydrogen peroxide (do not swallow!). Or, you can use a cotton swab to directly apply hydrogen peroxide onto the cut. Mouth wounds can be painful when eating. You may use an [id number] local numbing solution for pain relief. If this is not available, you may use any numbing solution for teething babies. You may apply this directly to the sores with a cotton-tip swab or with your finger. Follow-up care Follow up with your health care provider. Most skin wounds heal within ten days. Mouth and facial wounds heal within five days. However, even with proper treatment, a wound infection may sometimes occur. Therefore, you should check the wound daily for signs of infection listed below. Stitches should be removed from the face within five days; stitches and cortney should be removed from other parts of the body within 714 days. If dissolving stitches were used in the mouth, these will fall out or dissolve without the need for removal. If tape closures were used, remove them yourself if they have not fallen off after 7 days. Ifskin glue was used, the film will fall off by itself in 510 days. When to seek medical care Get prompt medical attention if any of these occur: Bleeding not controlled by direct pressure Signs of infection, including increasing pain in the wound, increasing wound redness or swelling, or pus coming from the wound Fever of 100.4F (38C) or higher, or as directed by your health care provider Stitches or cortney come apart or fall out or surgical tape falls off before 7 days Wound edges re-open Cephalexin Monohydrate Oral tablet What is this medicine? CEPHALEXIN (sef a AMNA in) is a cephalosporin antibiotic. It is used to treat certain kinds of bacterial infections It will not work for colds, flu, or other viral infections. How should I use this medicine? Take this medicine by mouth with a full glass of water. Follow the directions on the prescription label. This medicine can be taken with or without food. Take your medicine at regular intervals. Do not take your medicine more often than directed. Take all of your medicine as directed even if you think you are better. Do not skip doses or stop your medicine early. Talk to your entry level finance regarding the use of this medicine in children. While this drug may be prescribed for selected conditions, precautions do apply. What side effects may I notice from receiving this medicine? Side effects that you should report to your doctor or health director medicare sales as soon as possible: allergic reactions like skin rash, itching or hives, swelling of the face, lips, or tongue breathing problems pain or trouble passing urine redness, blistering, peeling or loosening of the skin, including inside the mouth severe or watery diarrhea unusually weak or tired yellowing of the eyes, skin Side effects that usually do not require medical attention (report to your doctor or health director medicare sales if they continue or are bothersome): gas or heartburn genital or anal irritation headache joint or muscle pain nausea, vomiting What may interact with this medicine? probenecid some other antibiotics What if I miss a dose? If you miss a dose, take it as soon as you can. If it is almost time for your next dose, take only that dose. Do not take double or extra doses. There should be at least 4 to 6 hours between doses. Where should I keep my medicine? Keep out of the reach of children. Store at room temperature between 59 and 86 degrees F (15 and 30 degrees C). Throw away any unused medicine after the expiration date. What should I tell my health care provider before I take this medicine? They need to know if you have any of these conditions: kidney disease stomach or intestine problems, especially colitis an unusual or allergic reaction to cephalexin, other cephalosporins, penicillins, other antibiotics, medicines, foods, dyes or preservatives or trying to get breast-feeding What should I watch for while using this medicine? Tell your doctor or health director medicare sales if your symptoms do not begin to improve in a few days. Do not treat diarrhea with over the counter products. Contact your doctor if you have diarrhea that lasts more than 2 days or if it is severe and watery. If you have diabetes, you may get a false-positive result for sugar in your urine. Check with your doctor or health director medicare sales. Oxycodone Hydrochloride, Acetaminophen Oral tablet What is this medicine? ACETAMINOPHEN; OXYCODONE (a set a SEE amarjit fen; ox i KOE done) is a pain reliever. It is used to treat mild to moderate pain. How should I use this medicine? Take this medicine by mouth with a full glass of water. Follow the directions on the prescription label. Take your medicine at regular intervals. Do not take your medicine more often than directed. Talk to your entry level finance regarding the use of this medicine in children. Special care may be needed. Patients over 65 years old may have a stronger reaction and need a smaller dose. What side effects may I notice from receiving this medicine? Side effects that you should report to your doctor or health director medicare sales as soon as possible: allergic reactions like skin rash, itching or hives, swelling of the face, lips, or tongue breathing difficulties, wheezing confusion light headedness or fainting spells severe stomach pain yellowing of the skin or the whites of the eyes Side effects that usually do not require medical attention (report to your doctor or health director medicare sales if they continue or are bothersome): dizziness drowsiness nausea vomiting What may interact with this medicine? alcohol antihistamines barbiturates like amobarbital, butalbital, butabarbital, methohexital, pentobarbital, phenobarbital, thiopental, and secobarbital benztropine drugs for bladder problems like solifenacin, trospium, oxybutynin, tolterodine, hyoscyamine, and methscopolamine drugs for breathing problems like ipratropium and tiotropium drugs for certain stomach or intestine problems like propantheline, homatropine methylbromide, glycopyrrolate, atropine, belladonna, and dicyclomine general anesthetics like etomidate, ketamine, nitrous oxide, propofol, desflurane, enflurane, halothane, isoflurane, and sevoflurane medicines for depression, anxiety, or psychotic disturbances medicines for sleep muscle relaxants naltrexone narcotic medicines (opiates) for pain phenothiazines like perphenazine, thioridazine, chlorpromazine, mesoridazine, fluphenazine, prochlorperazine, promazine, and trifluoperazine scopolamine tramadol trihexyphenidyl What if I miss a dose? If you miss a dose, take it as soon as you can. If it is almost time for your next dose, take only that dose. Do not take double or extra doses. Where should I keep my medicine? Keep out of the reach of children. This medicine can be abused. Keep your medicine in a safe place to protect it from theft. Do not share this medicine with anyone. Selling or giving away this medicine is dangerous and against the law. Store at room temperature between 20 and 25 degrees C (68 and 77 degrees F). Keep container tightly closed. Protect from light. This medicine may cause accidental overdose and if it is taken by other adults, children, or pets. Flush any unused medicine down the toilet to reduce the chance of harm. Do not use the medicine after the expiration date. What should I tell my health care provider before I take this medicine? They need to know if you have any of these conditions: brain tumor Crohn's disease, inflammatory bowel disease, or ulcerative colitis drink more than 3 alcohol containing drinks per day drug abuse or addiction head injury heart or circulation problems kidney disease or problems going to the bathroom liver disease lung disease, asthma, or breathing problems an unusual or allergic reaction to acetaminophen, oxycodone, other opioid analgesics, other medicines, foods, dyes, or preservatives or trying to get breast-feeding What should I watch for while using this medicine? Tell your doctor or health director medicare sales if your pain does not go away, if it gets worse, or if you have new or a different type of pain. You may develop tolerance to the medicine. Tolerance means that you will need a higher dose of the medication for pain relief. Tolerance is normal and is expected if you take this medicine for a long time. Do not suddenly stop taking your medicine because you may develop a severe reaction. Your body becomes used to the medicine. This does NOT mean you are addicted. Addiction is a behavior related to getting and using a drug for a non-medical reason. If you have pain, you have a medical reason to take pain medicine. Your doctor will tell you how much medicine to take. If your doctor wants you to stop the medicine, the dose will be slowly lowered over time to avoid any side effects. You may get drowsy or dizzy. Do not drive, use machinery, or do anything that needs mental alertness until you know how this medicine affects you. Do not stand or sit up quickly, especially if you are an older patient. This reduces the risk of dizzy or fainting spells. Alcohol may interfere with the effect of this medicine. Avoid alcoholic drinks. There are different types of narcotic medicines (opiates) for pain. If you take more than one type at the same time, you may have more side effects. Give your health care provider a list of all medicines you use. Your doctor will tell you how much medicine to take. Do not take more medicine than directed. Call emergency for help if you have problems breathing. The medicine will cause constipation. Try to have a bowel movement at least every 2 to 3 days. If you do not have a bowel movement for 3 days, call your doctor or health director medicare sales. Do not take Tylenol (acetaminophen) or medicines that have acetaminophen with this medicine. Too much acetaminophen can be very dangerous. Many nonprescription medicines contain acetaminophen. Always read the labels carefully to avoid taking more acetaminophen. You have been given the following additional information: Laceration, All Cephalexin Monohydrate Oral tablet Oxycodone Hydrochloride, Acetaminophen Oral tablet Off work for 7 days. (Electronically signed by Marcio Obregon Dr. 03/22/2017 7:34)
--- NOTE | 2017-03-22 07:34 | ED DISCHARGE INSTRUCTIONS ---
Patient: JAVON BLEDSOE General Instructions [facility] VisitID: [id number] [address], [place] [address] 36y, M Registration Date/Time: 03/18/2017 03/18/2017 20:52 BP: 148/78. HR: 67. RR: 20. O2 saturation: 96%. Pain level now: 0/10. Blood pressure normal. Oxygen saturation normal. Deep laceration. 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 No foreign body present. need for tetanus booster. INSTRUCTIONS Off work for 7 days. Warnings: INFECTION: Watch for signs of infection (increasing heat and redness, pus-like drainage, swelling, or increased pain). Return or see your doctor if these signs occur. SEDATIVE MEDICATION: You were given sedative medication during your visit. Do not drive or operate dangerous machinery. CONTROLLED SUBSTANCE WARNINGS. GENERAL WARNINGS: Return or contact your physician immediately if your condition worsens or changes unexpectedly, if not improving as expected, or if other problems arise. Specifically return if pain, vomiting, bleeding, breathing difficulty or fever. Your Current Medications: CONTINUE TAKING THE FOLLOWING MEDICATIONS: None*. Prescription Medications: Cephalexin 500 mg: take 1 capsule orally every 8 hours for 10 days. No refill. (disp 30 caps) Percocet 5 mg/325 mg: take 1-2 tablets orally every 6 hours as needed for pain. Dispense thirty (30). No refill. Substitution is permissible. Morphine sulfate 15 mg IR. Take one tab PO. As needed for break through pain every 6 hours. Disp 15 tabs. No refills. Substitution allowed. Follow-up: Return to the emergency department as needed. Follow up with your doctor in five days. Reason for referral: recheck today's concerns. Summary of care provided to patient and family via paper. Screening today revealed the patient's blood pressure to be in the normal range. The patient should follow up with a primary care provider for blood pressure management. Understanding of the discharge instructions verbalized by patient and family. Follow-up with: [facility], , [address], [place] [id number] Follow up. Reason for referral: Call first thing tomorrow morning for an appointment. Summary of care provided to patient via paper. ADDITIONAL INFORMATION Laceration (All Closures) Alaceration is a cut through the skin. This will usually require stitches (sutures) or cortney if it is deep. Minor cuts may be treated with a surgical tape closure orskin glue. Home care The following guidelines will help you care for your laceration at home: Extremity, face, or trunk wounds Keep the wound clean and dry. If a bandage was applied and it becomes wet or dirty, replace it. Otherwise, leave it in place for the first 24 hours. If stitches or cortney were used, clean the wound daily. After removing the bandage, wash the area with soap and water. Use a wet cotton swab to loosen and remove any blood or crust that forms. The doctor may prescribe an antibiotic cream or ointment to prevent infection. Do not stop taking this medication until you have finished the prescribed course or the doctor tells you to stop. The doctor may also prescribe medications for pain. Follow the doctors instructions for taking these medications. You may remove the bandage to shower as usual after the first 24 hours, but do not soak the area in water (no swimming) until the stitches or cortney are removed. If surgical tape was used, keep the area clean and dry. If it becomes wet, blot it dry with a towel. If skin glue was used, do not scratch, rub, or pick at the adhesive film. Do not place tape directly over the film. Do not apply liquid, ointment, or creams to the wound while the film is in place. Do not clean the wound with peroxide and do not apply ointments. Avoid activities that cause heavy sweating until the film has fallen off. Protect the wound from prolonged exposure to sunlight or tanning lamps. You may shower as usual but do not soak the wound in water (no baths or swimming). The film will fall off by itself in 510 days. Scalp wounds During the first two days, you may carefully rinse your hair in the shower to remove blood, glass or dirt particles. After two days, you may shower and shampoo your hair normally. Do not soak your scalp in the tub or go swimming until the stitches or cortney have been removed. Talk with your doctor before applying any antibiotic ointment to the wound. Mouth wounds Eat soft foods to reduce pain. If the cut is inside of your mouth, clean by rinsing after each meal and at bedtime with a mixture of equal parts water and hydrogen peroxide (do not swallow!). Or, you can use a cotton swab to directly apply hydrogen peroxide onto the cut. Mouth wounds can be painful when eating. You may use an [id number] local numbing solution for pain relief. If this is not available, you may use any numbing solution for teething babies. You may apply this directly to the sores with a cotton-tip swab or with your finger. Follow-up care Follow up with your health care provider. Most skin wounds heal within ten days. Mouth and facial wounds heal within five days. However, even with proper treatment, a wound infection may sometimes occur. Therefore, you should check the wound daily for signs of infection listed below. Stitches should be removed from the face within five days; stitches and cortney should be removed from other parts of the body within 714 days. If dissolving stitches were used in the mouth, these will fall out or dissolve without the need for removal. If tape closures were used, remove them yourself if they have not fallen off after 7 days. Ifskin glue was used, the film will fall off by itself in 510 days. When to seek medical care Get prompt medical attention if any of these occur: Bleeding not controlled by direct pressure Signs of infection, including increasing pain in the wound, increasing wound redness or swelling, or pus coming from the wound Fever of 100.4F (38C) or higher, or as directed by your health care provider Stitches or cortney come apart or fall out or surgical tape falls off before 7 days Wound edges re-open Cephalexin Monohydrate Oral tablet What is this medicine? CEPHALEXIN (sef a AMNA in) is a cephalosporin antibiotic. It is used to treat certain kinds of bacterial infections It will not work for colds, flu, or other viral infections. How should I use this medicine? Take this medicine by mouth with a full glass of water. Follow the directions on the prescription label. This medicine can be taken with or without food. Take your medicine at regular intervals. Do not take your medicine more often than directed. Take all of your medicine as directed even if you think you are better. Do not skip doses or stop your medicine early. Talk to your operators teacher regarding the use of this medicine in children. While this drug may be prescribed for selected conditions, precautions do apply. What side effects may I notice from receiving this medicine? Side effects that you should report to your doctor or health care coordination manager as soon as possible: allergic reactions like skin rash, itching or hives, swelling of the face, lips, or tongue breathing problems pain or trouble passing urine redness, blistering, peeling or loosening of the skin, including inside the mouth severe or watery diarrhea unusually weak or tired yellowing of the eyes, skin Side effects that usually do not require medical attention (report to your doctor or health care coordination manager if they continue or are bothersome): gas or heartburn genital or anal irritation headache joint or muscle pain nausea, vomiting What may interact with this medicine? probenecid some other antibiotics What if I miss a dose? If you miss a dose, take it as soon as you can. If it is almost time for your next dose, take only that dose. Do not take double or extra doses. There should be at least 4 to 6 hours between doses. Where should I keep my medicine? Keep out of the reach of children. Store at room temperature between 59 and 86 degrees F (15 and 30 degrees C). Throw away any unused medicine after the expiration date. What should I tell my health care provider before I take this medicine? They need to know if you have any of these conditions: kidney disease stomach or intestine problems, especially colitis an unusual or allergic reaction to cephalexin, other cephalosporins, penicillins, other antibiotics, medicines, foods, dyes or preservatives or trying to get breast-feeding What should I watch for while using this medicine? Tell your doctor or health care coordination manager if your symptoms do not begin to improve in a few days. Do not treat diarrhea with over the counter products. Contact your doctor if you have diarrhea that lasts more than 2 days or if it is severe and watery. If you have diabetes, you may get a false-positive result for sugar in your urine. Check with your doctor or health care coordination manager. Oxycodone Hydrochloride, Acetaminophen Oral tablet What is this medicine? ACETAMINOPHEN; OXYCODONE (a set a SEE amarjit fen; ox i KOE done) is a pain reliever. It is used to treat mild to moderate pain. How should I use this medicine? Take this medicine by mouth with a full glass of water. Follow the directions on the prescription label. Take your medicine at regular intervals. Do not take your medicine more often than directed. Talk to your operators teacher regarding the use of this medicine in children. Special care may be needed. Patients over 65 years old may have a stronger reaction and need a smaller dose. What side effects may I notice from receiving this medicine? Side effects that you should report to your doctor or health care coordination manager as soon as possible: allergic reactions like skin rash, itching or hives, swelling of the face, lips, or tongue breathing difficulties, wheezing confusion light headedness or fainting spells severe stomach pain yellowing of the skin or the whites of the eyes Side effects that usually do not require medical attention (report to your doctor or health care coordination manager if they continue or are bothersome): dizziness drowsiness nausea vomiting What may interact with this medicine? alcohol antihistamines barbiturates like amobarbital, butalbital, butabarbital, methohexital, pentobarbital, phenobarbital, thiopental, and secobarbital benztropine drugs for bladder problems like solifenacin, trospium, oxybutynin, tolterodine, hyoscyamine, and methscopolamine drugs for breathing problems like ipratropium and tiotropium drugs for certain stomach or intestine problems like propantheline, homatropine methylbromide, glycopyrrolate, atropine, belladonna, and dicyclomine general anesthetics like etomidate, ketamine, nitrous oxide, propofol, desflurane, enflurane, halothane, isoflurane, and sevoflurane medicines for depression, anxiety, or psychotic disturbances medicines for sleep muscle relaxants naltrexone narcotic medicines (opiates) for pain phenothiazines like perphenazine, thioridazine, chlorpromazine, mesoridazine, fluphenazine, prochlorperazine, promazine, and trifluoperazine scopolamine tramadol trihexyphenidyl What if I miss a dose? If you miss a dose, take it as soon as you can. If it is almost time for your next dose, take only that dose. Do not take double or extra doses. Where should I keep my medicine? Keep out of the reach of children. This medicine can be abused. Keep your medicine in a safe place to protect it from theft. Do not share this medicine with anyone. Selling or giving away this medicine is dangerous and against the law. Store at room temperature between 20 and 25 degrees C (68 and 77 degrees F). Keep container tightly closed. Protect from light. This medicine may cause accidental overdose and if it is taken by other adults, children, or pets. Flush any unused medicine down the toilet to reduce the chance of harm. Do not use the medicine after the expiration date. What should I tell my health care provider before I take this medicine? They need to know if you have any of these conditions: brain tumor Crohn's disease, inflammatory bowel disease, or ulcerative colitis drink more than 3 alcohol containing drinks per day drug abuse or addiction head injury heart or circulation problems kidney disease or problems going to the bathroom liver disease lung disease, asthma, or breathing problems an unusual or allergic reaction to acetaminophen, oxycodone, other opioid analgesics, other medicines, foods, dyes, or preservatives or trying to get breast-feeding What should I watch for while using this medicine? Tell your doctor or health care coordination manager if your pain does not go away, if it gets worse, or if you have new or a different type of pain. You may develop tolerance to the medicine. Tolerance means that you will need a higher dose of the medication for pain relief. Tolerance is normal and is expected if you take this medicine for a long time. Do not suddenly stop taking your medicine because you may develop a severe reaction. Your body becomes used to the medicine. This does NOT mean you are addicted. Addiction is a behavior related to getting and using a drug for a non-medical reason. If you have pain, you have a medical reason to take pain medicine. Your doctor will tell you how much medicine to take. If your doctor wants you to stop the medicine, the dose will be slowly lowered over time to avoid any side effects. You may get drowsy or dizzy. Do not drive, use machinery, or do anything that needs mental alertness until you know how this medicine affects you. Do not stand or sit up quickly, especially if you are an older patient. This reduces the risk of dizzy or fainting spells. Alcohol may interfere with the effect of this medicine. Avoid alcoholic drinks. There are different types of narcotic medicines (opiates) for pain. If you take more than one type at the same time, you may have more side effects. Give your health care provider a list of all medicines you use. Your doctor will tell you how much medicine to take. Do not take more medicine than directed. Call emergency for help if you have problems breathing. The medicine will cause constipation. Try to have a bowel movement at least every 2 to 3 days. If you do not have a bowel movement for 3 days, call your doctor or health care coordination manager. Do not take Tylenol (acetaminophen) or medicines that have acetaminophen with this medicine. Too much acetaminophen can be very dangerous. Many nonprescription medicines contain acetaminophen. Always read the labels carefully to avoid taking more acetaminophen. You have been given the following additional information: Laceration, All Cephalexin Monohydrate Oral tablet Oxycodone Hydrochloride, Acetaminophen Oral tablet Off work for 7 days. (Electronically signed by Marcio Obregon Dr. 03/22/2017 7:34)
--- NOTE | 2017-03-22 07:34 | ED MED RECONCILIATION SUMMARY ---
Patient: JAVON BLEDSOE Medication Reconciliation Report [facility] VisitID: [id number] [place] [address] 36y, M Registration Date/Time: 03/18/2017 Weight: 92.9 kg Height/Length: 70 in. BMI: 29.4 ALLERGIES: No Known Drug Allergy The patient's Home Medications are listed below: NONE. The source(s) of the original Home Medication information: Not obtained. The following Medications were given to the patient in the Emergency Department: IV NS IV Fluids bolus 0, then 1000 mL/hr, administered: 03/18/2017 6:18:00 PM Morphine [IVP] IVP 4 mg, administered: 03/18/2017 6:19:00 PM Morphine [IVP] IVP 2 mg, administered: 03/18/2017 7:10:00 PM Morphine [IVP] IVP 4 mg, administered: 03/18/2017 7:50:00 PM Lidocaine [Injection] Injection 1 %, administered: 03/18/2017 7:53:00 PM Zofran [IVP] IVP 4 mg, administered: 03/18/2017 7:55:00 PM Morphine [IVP] IVP 4 mg, administered: 03/18/2017 8:03:00 PM Dilaudid [IVP] IVP 1 mg, administered: 03/18/2017 8:20:00 PM [id number] PERTUSSIS [IM] IM 0.5 mL, administered: 03/18/2017 9:09:00 PM Ceftriaxone [IVPB] IVPB bolus 0, then 1 gm 150 mL/hr, administered: 03/18/2017 9:00:00 PM The following Medications were prescribed to the patient: Morphine sulfate 15 mg IR. Take one tab PO. As needed for break through pain every 6 hours. Disp 15 tabs. No refills. Substitution allowed. -- Marcio Obregon Dr. Cephalexin 500 mg: take 1 capsule orally every 8 hours for 10 days. No refill.(disp 30 caps) -- Marcio Obregon Dr. Percocet 5 mg/325 mg: take 1-2 tablets orally every 6 hours as needed for pain. Dispense thirty (30). No refill. Substitution is permissible. -- Marcio Obregon Dr.
--- NOTE | 2017-03-22 07:34 | ED MED RECONCILIATION SUMMARY ---
Patient: JAVON BLEDSOE Medication Reconciliation Report [facility] VisitID: [id number] [place] [address] 36y, M Registration Date/Time: 03/18/2017 Weight: 92.9 kg Height/Length: 70 in. BMI: 29.4 ALLERGIES: No Known Drug Allergy The patient's Home Medications are listed below: NONE. The source(s) of the original Home Medication information: Not obtained. The following Medications were given to the patient in the Emergency Department: IV NS IV Fluids bolus 0, then 1000 mL/hr, administered: 03/18/2017 6:18:00 PM Morphine [IVP] IVP 4 mg, administered: 03/18/2017 6:19:00 PM Morphine [IVP] IVP 2 mg, administered: 03/18/2017 7:10:00 PM Morphine [IVP] IVP 4 mg, administered: 03/18/2017 7:50:00 PM Lidocaine [Injection] Injection 1 %, administered: 03/18/2017 7:53:00 PM Zofran [IVP] IVP 4 mg, administered: 03/18/2017 7:55:00 PM Morphine [IVP] IVP 4 mg, administered: 03/18/2017 8:03:00 PM Dilaudid [IVP] IVP 1 mg, administered: 03/18/2017 8:20:00 PM [id number] PERTUSSIS [IM] IM 0.5 mL, administered: 03/18/2017 9:09:00 PM Ceftriaxone [IVPB] IVPB bolus 0, then 1 gm 150 mL/hr, administered: 03/18/2017 9:00:00 PM The following Medications were prescribed to the patient: Morphine sulfate 15 mg IR. Take one tab PO. As needed for break through pain every 6 hours. Disp 15 tabs. No refills. Substitution allowed. -- Marcio Obregon Dr. Cephalexin 500 mg: take 1 capsule orally every 8 hours for 10 days. No refill.(disp 30 caps) -- Marcio Obregon Dr. Percocet 5 mg/325 mg: take 1-2 tablets orally every 6 hours as needed for pain. Dispense thirty (30). No refill. Substitution is permissible. -- Marcio Obregon Dr.
== END 2017-03-18 21:30 | disposition home or self-care (01) ==
LOC: ED SRH 18:01
DX: S98.211A Complete traumatic amputation of two or more right lesser toes, initial encounter (principal); W20.8XXA Other cause of strike by thrown, projected or falling object, initial encounter; Y92.009 Unspecified place in unspecified non-institutional (private) residence as the place of occurrence of the external cause

== ENCOUNTER 2017-03-21 11:39 | Outpatient (CLI) | payer SELFPAY ==
--- NOTE | 2017-03-21 13:31 | CONSULTATION REPORT ---
DATE OF SERVICE: 03/21/2017 ATTENDING PHYSICIAN/PROVIDER: Pepe Cabezas MD HISTORY OF PRESENT ILLNESS: This 36-year-old man was at a recreational site 2 days ago and dropped a trailer hitch over a pipe-like extension that his foot was resting on and amputated the third and fourth toes of his right foot through the webspace, shearing off enough skin that it was not possible to close the wound. He has been treated as a traumatic amputation with open wound. He had been seen in the emergency room on 03/19/2017 and then seen later that day in our clinic where his dressing was changed and a culture was taken. We recommended he go to wound care. The patient and his told us that she works at [employer] and they live nearby and they would prefer to go to [facility] for followup, to their wound center. We confirmed from our clinic that they could accommodate the patient. Therefore, he was scheduled for 5 days later with the wound care. Last night, he had a temperature to 100.3 with no increase in pain and no mental confusion and no shaking chills. The temperature had returned to normal this morning, but I arranged to meet the patient in an outpatient setting to change his dressing and inspect the wound. MEDICAL/SURGICAL HISTORY: Medical history unchanged since 2 days ago. ALLERGIES: 1. HE HAS NO ALLERGIES. MEDICATIONS: 1. Cephalexin 500 mg t.i.d. to finish out a 10-day course. 2. Motrin 800 mg p.r.n. pain, to be taken with food. 3. Percocet. PROCEDURE: The patient's dressing was taken down to the Xeroform, which was then softened with a sterile 4 x 4 with peroxide soaking it. After it had softened, it was peeled off his wound. The surrounding skin was clean. There was no cellulitis. There was no increasing swelling of the foot. It actually looked only minimally swollen, despite the trauma. The wound appeared moist. The tissues were pink. There was no pus visible. Once again using sterile technique, sterile gloves and sterile dressing, the wound was redressed with Xeroform on the wound, a fluff dressing over the end of the toes and wrapped with Kerlix. DISCHARGE INSTRUCTIONS/MEDICATIONS: Continue the Keflex, Motrin and Percocet. Elevate the leg as he has been doing. Walk with no weight on the right foot using crutches. Attend the [facility] as scheduled with them on Wednesday past, meaning 2 days ago from our clinic. Return to the emergency room if he gets a fever or if there is mental confusion or if the pain suddenly increases.
== END 2017-03-21 17:00 | disposition home or self-care (01) ==
LOC: SDC SRH 11:39 → ED SRH 11:39 → SCU SRH 11:39 → SDC SRH 17:00
PROC: 2W0SX4Z Change Bandage on Right Foot (ICD-10-PCS; principal; 2017-03-21)
DX: S98.211A Complete traumatic amputation of two or more right lesser toes, initial encounter (principal)
CPT/HCPCS: 29240